=== PATIENT | male | born 1955 | race Caucasian/White ===

== ENCOUNTER 2024-04-11 11:00 | Inpatient (IN) | payer MEDICARE, OTHER, SELFPAY ==
[2024-04-11] VITALS (26 sets, daily range): BP systolic 0–149; BP diastolic 0–100; PULSE 82–102; RESP 18; O2SAT 75–99; BMI 21.1
--- NOTE | 2024-04-11 11:07 | ED.SOB1 ---
HPI - SOB/Dyspnea General Chief Complaint: Shortness of Breath/Dyspnea Stated Complaint: SOB Time Seen by Provider: 04/11/24 11:06 Source comment: Patient is limited historian. Paramedics indicate that the son called. They increased his oxygen flow at home he was 88% saturation. They gave him Solu-Medrol and a DuoNeb and route here. His son is coming to the hospital. The medic stated that to their knowledge he is a full CODE BLUE. The son has not arrived as a time of this note. When he arrived here the patient was barely responsive could not answer questions. Did not follow any commands. Pulse oximetry was below 90% on 100% nonrebreather mask. Respiratory therapy was paged to the emergency room immediately. History of Present Illness HPI Narrative: Please see note above as the patient was unable to provide any information for us. We were able to obtain old x-rays that show that he has severe COPD and interstitial lung disease. Respiratory therapy responded and we put him on a BiPAP mask immediately with slow but gradual improvement of his pulse oximetry. A stat chest x-ray shows left lung infiltrates and small effusion on the right with interstitial/COPD findings in both lungs. Related Data Allergies Allergy/AdvReac Type Severity Reaction Status Date / Time No Known Drug Allergies Allergy Verified 04/11/24 11:43 Exam Narrative Exam Narrative: This patient was an extremis when he arrived here. Supplemental oxygen and airway support measures as noted above. He responded clinically to the BiPAP and aggressive nebulizer treatments. We are awaiting his power of ip technology transactions attorney to give us direction on his CODE STATUS and status of intubation. On arrival here as he said he could barely open his eyes or speak at all. He did have some movement of his extremities but no purposeful movement. His skin was warm and dry he was not diaphoretic. Pulses were strong upper extremities and he did have a decent blood pressure. His skin integument has chronic skin changes and darkening from his COPD. His chest showed scattered rhonchi with wheezing decreased airflow throughout. Heart rate and rhythm were irregular consistent with his history of atrial fibrillation. Abdomen did not seem to have any masses or tenderness to palpation. MDM - SOB/Dyspnea MDM Narrative Medical decision making narrative: Fortunately his who is the POA arrived shortly thereafter and indicated that they are not leaning towards more ventilatory support or intubation. This patient is no longer on anticoagulation therapy because he has severe bleeding from the esophagus earlier this winter. He is known to have atrial fibrillation and actually had a chemical stress test yesterday at [facility] when he was feeling better and she was told that the stress test was essentially normal. They are considering a procedure for his atrial fibrillation at the [facility]. Today he has clinically improved to his BiPAP but his pCO2 is extraordinarily high at above 120. His chest x-ray was consistent with infectious infiltrates and so blood cultures were done lactate and he was placed on antibiotic therapy. Early in the course of his arrival here I notified the hospitalist to determine whether or not he would be interested in providing ongoing care and Dr. Nuñez actually has come to the emergency room to help manage the patient. It is my understanding that they do not want him on the ventilator and are actually giving him comfort care measures that orders have been written by the attending. Discharge Plan Discharge Chief Complaint: Shortness of Breath/Dyspnea Clinical Impression: Acute hypercapnic respiratory failure Patient Disposition: Admitted As Inpatient Time of Disposition Decision: 12:58 Condition: Critical Print Language: Mongolian Referrals: Physician,Non-Staff, MD [Primary Care Provider] - 1 week
--- NOTE | 2024-04-11 11:09 | XR_ITS ---
The [address] [address] Patient Name: FREDA REIS MRN: [id number] date: 1955 Sex: M Assigned Patient Location: ER Current Patient Location: ER Accession/Order Number: [id number] Exam Date: 04/11/2024 11:14 Report Date: 04/11/2024 11:23 At the request of: ROSEY BANKS Procedure: XR chest 1V EXAM: Chest x-ray HISTORY: . Dyspnea . COMPARISON: 04/03/2023 TECHNIQUE: Single view of the chest FINDINGS: Patient is rotated on today's exam. Heart is enlarged. Vascularity is unremarkable. There is a left perihilar infiltrate extending into the left upper and lower lobe. There is a small left effusion. There is a small amount of increased density in the right mid and lower lung field. XR/XR chest 1V IMPRESSION: 1 left perihilar infiltrate extending into the left upper and lower lobes. 2. Atelectasis versus early infiltrate in the right mid and lower lung field. 3. Small bilateral effusions. Electronically authenticated by: AKANKSHA BARFIELD Date: 04/11/2024 11:23
--- NOTE | 2024-04-11 11:09 | ECG_ITS ---
The 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
[2024-04-11 11:28] LABS: Hematocrit 37.3 % (42.0-54.0); Mean Corpuscular HGB Conc 29.5 g/dL (29.9-35.2); Mean Corpuscular Hemoglobin 27.4 pg (25.9-34.0); Mean Platelet Volume 9.5 fL (9.5-13.5); Platelet Count 227 10^3/uL (150-450); Red Blood Count 4.01 10^6/uL (4.70-6.10); Red Cell Distribution Width 17.3 % (11.0-15.0); White Blood Count 8.3 10^3/uL (4.0-11.0)
[2024-04-11] MEDS: CEFTRIAXONE 1,000 MG in 0.9 % SODIUM CHLORIDE 50 ML 100 MG IV (11:40)
[2024-04-11] MEDS: 0.9 % SODIUM CHLORIDE 500 ML 1000 ML IV (11:40)
[2024-04-11 11:46] LABS: PO2 ABG 81.3 mmHg (80.0-100.0)
[2024-04-11 11:47] LABS: Allen Test POSITIVE (POSITIVE); BIPAP Pressure 18/10; Fractionated Inspired Oxygen 100 %; O2 Mode BIPAP; Puncture Site LR; Rate 18
[2024-04-11 11:49] LABS: ABG PCO2 >120.0 mmHg (35.0-45.0); pH ABG 7.082 (7.350-7.450)
[2024-04-11] MEDS: ALBUTEROL SULFATE 2.5 MG/3 ML VIAL NEB IH (11:50)
[2024-04-11 12:04] LABS: Alanine Aminotransferase 38 U/L (16-63); Albumin Globulin Ratio 0.6; Albumin Level 2.9 g/dL (3.4-5.0); Alkaline Phosphatase 90 U/L (46-116); Aspartate Amino Transferase 32 U/L (15-37); BUN Creatinine Ratio 37.5; Bilirubin Total 0.4 mg/dL (0.2-1.0); Calcium 9.2 mg/dL (8.5-10.1); Chloride 93 mmol/L (98-107); Estimated GFR (African America >60 (>=60); Estimated GFR (Non-African Ame >60 (>=60); Glucose 87 mg/dL (74-106); Sodium 131 mmol/L (136-145); Total Protein 7.9 g/dL (6.4-8.2); Troponin I High Sensitivity 7.9 pg/mL (4.0-76.1)
[2024-04-11 12:09] LABS: Band Neutrophils Absolute 1.4 10^3/uL (0.0-0.3); Segmented Neut Absolute Manual 3.65 10^3/uL (1.4-6.5)
[2024-04-11 12:10] LABS: Eosinophils Absolute Manual 0.16 10^3/uL (0.00-0.70); Lymphocytes Absolute Manual 1.99 10^3/uL (1.20-3.80); Monocytes Absolute Manual 1.07 10^3/uL (0.30-0.80)
[2024-04-11] MEDS: LORAZEPAM 2 MG/ML VIAL 1 MG IV (13:33)
[2024-04-11] MEDS: MORPHINE SULFATE 2 MG/ML SYRINGE IV (13:33)
--- NOTE | 2024-04-11 14:42 | P.HP_ITS ---
HPI H&P: HPI History of Present Illness Chief complaint: RESPIRATORY FAILURE Narrative: 69 y o male was in his usual state of health when he developed acute shortness of breath and became confused/drowsy. He is on 2 L O2 and his son increased his O2 but his Pulse Ox remained below 80%. He called EMS and patient was brought over via EMS. Patient was hypoxic with pulse Ox in 70s, unresponsive on arrival and plan was to intubate him but he became more awake and alert on BIPAP. I evaluated the patient in ED while he was on BIPAP. Reviewed his chart, medical hx, and discussed his care with ED provider, ED nurses and patient's who was present bedside. Patient was on BIPAP, was using accessory muscles of respiration, unable to speak due to dyspnea but nodded yes/no to questions and was awake and alert. Initial diagnostic impression and workup was consistent with acute respiratory failure with hypercapnia, acute on chronic resp failure with hypoxia, severe resp acidosis, and bacterial PNA. Patient has severe COPD and ILD. Adfter detailed discussed with patient, his about his current illness, comorbid conditions, prognosis, patient and his decided to opt for hospice consult and comfort care measures. Advanced care planning discussed separately in a note. Will switch patient to NC for comfort, start on IV morhpine and Ativan as needed for dyspnea, pain, air hunger and anxiety. DNR paper signed and left with the nurses. Opioid HPI Opioid Management Most Recent Opioid Data: Last Pain Assessment 04/11/24 14:29 Last JAN Pain Assessment 04/11/24 13:33 Review of Systems ROS Status of ROS unobtainable due to medical condition PFSH [facility] Medical History (Updated 04/11/24 @ 14:56 by Shaikh Joaquin MD) Severe protein-calorie malnutrition ?E43 - Unspecified severe protein-calorie malnutrition (ICD-10) Pulmonary cachexia due to chronic obstructive pulmonary disease ?R64 - Cachexia (ICD-10) ?J44.9 - Chronic obstructive pulmonary disease, unspecified (ICD-10) ILD (interstitial lung disease) ?J84.9 - Interstitial pulmonary disease, unspecified (ICD-10) COPD (chronic obstructive pulmonary disease) ?J44.9 - Chronic obstructive pulmonary disease, unspecified (ICD-10) HTN (hypertension) ?I10 - Essential (primary) hypertension (ICD-10) Afib ?I48.91 - Unspecified atrial fibrillation (ICD-10) Meds Home Medications and Allergies Home Medications ?Medication ?Instructions ?Recorded ?Confirmed ?Type atorvastatin 40 mg tablet 40 mg PO BEDTIME 04/11/24 04/11/24 History dabigatran etexilate 150 mg 150 mg PO BID 04/11/24 04/11/24 History capsule (Pradaxa) ferrous sulfate 325 mg (65 mg 325 mg PO .QOD 04/11/24 04/11/24 History iron) tablet (FeroSul) finasteride 5 mg tablet 5 mg PO DAILY 04/11/24 04/11/24 History fluticasone 250 mcg-salmeterol 50 1 inh inhalation Q12H 04/11/24 04/11/24 History mcg/dose blistr powdr for inhalation metoprolol succinate 25 mg 25 mg PO DAILY 04/11/24 04/11/24 History tablet,extended release 24 hr montelukast 10 mg tablet 10 mg PO BEDTIME 04/11/24 04/11/24 History potassium chloride 10 mEq 20 meq PO BID 04/11/24 04/11/24 History capsule,extended release spironolactone 25 mg tablet 12.5 mg PO DAILY 04/11/24 04/11/24 History tamsulosin 0.4 mg capsule 0.4 mg PO BID 04/11/24 04/11/24 History valsartan 40 mg tablet 40 mg PO BID 04/11/24 04/11/24 History Allergies Allergy/AdvReac Type Severity Reaction Status Date / Time No Known Drug Allergies Allergy Verified 04/11/24 11:43 Exam Constitutional Vital Signs, click to edit/add: Last Vital Signs Pulse 86 04/11/24 13:51 Resp 26 H 04/11/24 13:51 BP 90/62 04/11/24 13:51 Pulse Ox 82 L 04/11/24 13:51 O2 Del Method BIPAP 04/11/24 13:51 FiO2 100 04/11/24 12:22 Documenting provider has reviewed patient's vital signs: yes General appearance: in distress, ill appearing, frail appearing and appears older than stated age Nutritional appearance: cachectic Orientation/consciousness: Yes awake HENMT Common normals: normocephalic and head/scalp atraumatic Chest Chest: abnormal inspection of the chest barrel chest Respiratory Effort & inspection: abnormal respiratory pattern, tachypneic, respiratory distress, labored, uses accessory muscles, paradoxical thoraco-abdominal movements and prolonged expiratory phase Auscultation: diminished lung sounds Other: Evidence of sig and labored breathing. Cardio Common normals: S1 normal heart sound and S2 normal heart sound Rate: tachycardic Rhythm: regular rhythm GI Common normals: Normal to inspection, nondistended, normoactive bowel sounds present, soft to palpation, non-tender and no hepatosplenomegaly Extremity Common normals: normal to inspection and full ROM Neuro Common normals: oriented x3 and no focal motor deficits Psych Common normals: mental status grossly normal, cooperative, denies hallucinations and denies homicidal ideation Results Labs Labs: Short CBC 04/11/24 Range/Units 11:14 WBC 8.3 (4.0-11.0) 10^3/uL Hgb 11.0 L (14.0-18.0) g/dL Hct 37.3 L (42.0-54.0) % Plt Count 227 (150-450) 10^3/uL BMP 04/11/24 11:14 Sodium 131 L Potassium 6.0 H Chloride 93 L Carbon Dioxide 41.0 H BUN 33.0 H Creatinine 0.88 Glucose 87 Calcium 9.2 Liver Function 04/11/24 Range/Units 11:14 Total Bilirubin 0.4 (0.2-1.0) mg/dL AST 32 (15-37) U/L ALT 38 (16-63) U/L Alkaline Phosphatase 90 (46-116) U/L Albumin 2.9 L (3.4-5.0) g/dL ABG ABG results: 04/11/24 11:27 ABG pH 7.082 L* ABG pCO2 >120.0 H* ABG pO2 81.3 ABG O2 Saturation 92.0 Assessment and Plan Assessment and Plan (1) Acute hypercapnic respiratory failure: Assessment and Plan: Due to COPD exacerbation/Pneumonia. Patient was seen while on BIPAP and needed to be intubated and started on invasive mechanical ventilation but after detailed discussed of goals of care, patient and her decided to opt for comfort care measures. Patient switched to NC, started on Morphine/ativan as needed. (2) Acute and chronic respiratory failure with hypoxia: Assessment and Plan: Due to COPD exacerbation/Pneumonia. CC measures only, started on morphine/ativan. (3) Metabolic encephalopathy: Assessment and Plan: due to hypercapnia, was unresponsive on arrival. Improved, awake and alert on BIPAP. (4) Hyperkalemia: Assessment and Plan: No treatment. CC measures only. (5) Pneumonia involving left lung: Assessment and Plan: Would have required Broad spectrum abx due to his comorbidities and risk of resistant pathogens. But family decided for CC measures. Morphine/ativan as needed Qualifiers: Pneumonia type: due to unspecified organism Lung location: unspecified part of lung Qualified Code(s): J18.9 - Pneumonia, unspecified organism (6) COPD exacerbation: Assessment and Plan: Duonebs as needed. CC measures only (7) Severe protein-calorie malnutrition: Assessment and Plan: Due to severe COPD/ILD, evidence of muscle wasting, loss of muscle mass, subcutaneous fat. (8) Pulmonary cachexia due to chronic obstructive pulmonary disease: Assessment and Plan: Low BMI, muscle wasting, loss of subcutaneous tissue. Poor prognosis and nutritional status likely due to disease burden (9) ILD (interstitial lung disease): Assessment and Plan: On 2 L at baseline. Presented with resp failure. CC measures only. Patient on NC for comfort. (10) HTN (hypertension): Assessment and Plan: Hold medications as blood pressure is low Qualifiers: Hypertension type: primary hypertension Qualified Code(s): I10 - Essential (primary) hypertension (11) Afib: Assessment and Plan: Hold medications. In NSR. Qualifiers: Atrial fibrillation type: paroxysmal Qualified Code(s): I48.0 - Paroxysmal atrial fibrillation
--- NOTE | 2024-04-11 14:52 | PC.NURSE ---
Trish Evans nurse called this feature writer and states she spoke with patient's and set up consultation meeting tomorrow at 1300 at this facility.
--- NOTE | 2024-04-11 15:05 | P.CSD_ITS ---
Advance Care Planning Advance Care Planning Discussion Advance care planning discussion summary: 69 y o male with hx of severe COPD/ILD presented to ED with acute respiratory failure with hypoxia and hypercapnia. Initially, plan was to intubate him by ED provider but than later on but later on it was held off due to improvement in his clinical status and also because of patient's preferance. When I evaluated the patient, he was on awake, alert, on BIPAP but had labored breathing. I discussed his prognosis with the patient and his in great length and detail. I explained to them that he will need to intubated because of his work of breathing on BIPAP. They were also made aware that he will likely be d ifficult to extubate because of his underlying COPD. Patient had previously been intubated for prolonged periods and did not want to go through with it again. He and his , opted to withdraw care and make him comfortable. We updated his paper work, made him DNR CC and switched him to NC, started on morphine/ativan as needed. Does patient have a terminal or chronic,progressive disease such that prognosis is less than 6 months: Yes Advance care planning discussion participants: patient, patient surrogate decision maker and legally authorized Health Care Proxy
--- NOTE | 2024-04-11 21:19 | PC.NURSE ---
RNs Mari Delgadillo and Nancy Pavon were present at bedside with family present. The patient did not have an apical heart beat or BP noted. No peripheral pulses noted. No respirations and pupils were dilated and unresponsive. Time of was noted at 1931. Family at bedside made aware. , Linda, requested [facility] to be notified. Nancy Pavon RN called [facility] at 1934. The confirmation number is #[id number]. Naida Rivas NP was called by Mari at 1935. Naida VALDIVIA notified Bassam Pineda MD of the patient time of . Family in with patient to say their last goodbyes. Once the family left, postmortem care was completed by Mari and Dianna le. [facility] was called at 2029 by Mari and spoke to Miranda. At 2047 Cathy Pelaez called from the home to notify they would be on their way shortly. The Home arrived at 2105 and left with the body at 2109.
== END 2024-04-11 21:10 | disposition expired | DRG 189 ==
LOC: ER 12:58 → MS 13:42
PROVIDERS: Admitting Provider Internal Medicine; Emergency Provider Emergency Medicine Emergency Medical Services; Visit Provider Internal Medicine
DX: J96.02 Acute respiratory failure with hypercapnia (principal); E43 Unspecified severe protein-calorie malnutrition; G93.41 Metabolic encephalopathy; J18.9 Pneumonia, unspecified organism; J44.0 Chronic obstructive pulmonary disease with (acute) lower respiratory infection; E87.29 Other acidosis; J84.9 Interstitial pulmonary disease, unspecified; R64 Cachexia; J44.1 Chronic obstructive pulmonary disease with (acute) exacerbation; Z99.81 Dependence on supplemental oxygen; I48.0 Paroxysmal atrial fibrillation; J96.21 Acute and chronic respiratory failure with hypoxia; Z66 Do not resuscitate; I10 Essential (primary) hypertension; Z79.899 Other long term (current) drug therapy; E87.5 Hyperkalemia; Z68.21 Body mass index [BMI] 21.0-21.9, adult
CPT/HCPCS: 36415; 36600; 71045; 80053; 82805; 83605; 83880; 84484; 85007; 85027; 87040; 93005; 94640; 94660; 94761; 96365; 96375; 99285